=== PATIENT | male | born 1990 | race Caucasian/White ===

== ENCOUNTER 2021-04-30 09:11 | Day surgery (SDC) | payer OTHER ==
[2021-04-24 10:58] VITALS: BMI 37.7
[2021-04-30] MEDS ORDERED: EPINEPHrine/PF 1 MG/1 ML (1:1,000) AMPULE ONE (10:24)
[2021-04-30] MEDS ORDERED: BUPIVACAINE HCL/PF 2.5 MG/ML - 30 ML VIAL IJ ONE (10:24)
[2021-04-30] MEDS ORDERED: ONDANSETRON 4 MG/2 ML VIAL ONE ×2 (10:26→11:39)
[2021-04-30] MEDS ORDERED: DEXAMETHASONE SOD PHOSPHATE 4 MG/1 ML VIAL ONE ×2 (10:26→11:39)
[2021-04-30] MEDS ORDERED: PROPOFOL 20 ML ONE ×2 (10:27)
[2021-04-30] MEDS ORDERED: KETOROLAC TROMETHAMINE 30 MG/1 ML VIAL ONE (10:27)
[2021-04-30] MEDS ORDERED: ceFAZolin SODIUM 1 GM VIAL ONE ×2 (10:27→10:41)
[2021-04-30] MEDS ORDERED: MIDAZOLAM HCL 2 MG/2 ML SINGLE DOSE VIAL ONE ×2 (10:27)
[2021-04-30] MEDS ORDERED: HYDROmorphone HCL/PF 1 MG/ML VIAL ONE (12:04)
[2021-04-30] MEDS: ACETAMINOPHEN 1000 MG/100 ML VIAL IVPB ONE ×2 (12:11→12:23)
[2021-04-30] MEDS ORDERED: ONDANSETRON 4 MG/2 ML VIAL IVPUSH PRN (12:18)
[2021-04-30] MEDS ORDERED: ACETAMINOPHEN INJECTION 100 ML IVPB ONE (12:19)
[2021-04-30] MEDS ORDERED: HYDROmorphone HCL CARPU-JECT 2 MG/1 ML DISP.SYRIN IVPUSH ONE (12:19)
[2021-04-30] MEDS ORDERED: LACTATED RINGERS SOLUTION 1,000 ML IV SCH (12:30)
[2021-04-30 13:31] VITALS: TEMP 98
[2021-04-30 14:22] VITALS: BP 144/85; PULSE 88
== END 2021-04-30 14:23 | disposition home or self-care (01) ==
LOC: FASU 09:11
PROVIDERS: ATTEND Orthopaedic Surgery
PROC: 0SQD4ZZ Repair Left Knee Joint, Percutaneous Endoscopic Approach (ICD-10-PCS; principal; 2021-04-30 11:03)
PROC: 0SPD04Z Removal of Internal Fixation Device from Left Knee Joint, Open Approach (ICD-10-PCS; 2021-04-30 11:03)
DX: S83.212A Bucket-handle tear of medial meniscus, current injury, left knee, initial encounter (principal); T84.84XA Pain due to internal orthopedic prosthetic devices, implants and grafts, initial encounter; Y79.1 Therapeutic (nonsurgical) and rehabilitative orthopedic devices associated with adverse incidents; X58.XXXA Exposure to other specified factors, initial encounter; Y93.9 Activity, unspecified; Y92.9 Unspecified place or not applicable
CPT/HCPCS: 94760; J0131